=== PATIENT | female | born 1950 | race Two or more races ===

== ENCOUNTER 2019-01-27 16:54 | Emergency (ER) | payer SELFPAY ==
[~2019-01-27] VITALS: Ht 162.6 cm; Wt 73.0 kg
[2019-01-27] MEDS ORDERED: ACETAMINOPHEN WITH CODEINE 300/30MG TABLET PO ONE (18:15)
[2019-01-27] MEDS ORDERED: KETOROLAC 60MG/2ML VIAL IM ONE (20:00)
[2019-01-27 20:22] VITALS: BP 154/87
== END 2019-01-27 20:24 | disposition home or self-care (01) ==
LOC: ER 16:54
DX: S52.612A Displaced fracture of left ulna styloid process, initial encounter for closed fracture (principal); W01.0XXA Fall on same level from slipping, tripping and stumbling without subsequent striking against object, initial encounter; Y93.89 Activity, other specified; Y92.520 Airport as the place of occurrence of the external cause
CPT/HCPCS: 29125; 73110; 96372; 99283; J1885; A4565